=== PATIENT | female | born 1980 | race American Indian/Alaskan Native ===

== ENCOUNTER 2020-09-25 09:58 | Emergency (ER) | payer MEDICAID ==
[2020-09-25 10:02] VITALS: BP 139/83
[2020-09-25] MEDS ORDERED: KETOROLAC 30 MG/1 ML INJ IM ONE (11:55)
--- NOTE | 2020-09-25 12:01 | Emergency Department Report ---
ED General Adult HPI - General Chief complaint: Dental/Oral Stated complaint: BROKEN TOOTH Time Seen by Provider: 09/25/20 10:18 Source: patient Mode of arrival: Ambulatory Limitations: No Limitations - History of Present Illness Initial comments: 39-year-old -[place] female patient presents with complaints of left lower dental pain x3 days. Patient rates her pain as a 10/10 in severity and states it worsens with chewing. She states [id number]-[id number] anti-inflammatories are not helping with her pain. Patient also reports trying to see her dentist this morning, however they did not have any emergency appointments available today. She denies any difficulty opening/closing her jaw, fever/chills/sweats, facial swelling, or or difficulty swallowing. - Related Data Previous Rx's Medication Instructions Recorded Last Taken Type Acetaminophen/Codeine [Tylenol 1 tab PO Q6H PRN #12 tab 09/25/20 Unknown Rx /Codeine # 3 tab] Penicillin V Potassium 500 mg PO QID 7 Days #28 tablet 09/25/20 Unknown Rx Allergies Allergy/AdvReac Type Severity Reaction Status Date / Time No Known Allergies Allergy Unverified 09/25/20 09:58 ED Review of Systems ROS: Stated complaint: BROKEN TOOTH Other details as noted in HPI Constitutional: denies: chills, diaphoresis, fever, malaise, weakness ENT: dental pain. denies: throat pain Respiratory: denies: shortness of breath Skin: denies: change in color Neurological: denies: headache Hematological/Lymphatic: denies: swollen glands ED Past Medical Hx - Past Medical History Previous Medical History?: No - Surgical History Additional Surgical History: OVARIAN CYST/CERVICAL /TOE - Social History Smoking Status: Never Smoker Substance Use Type: None - Medications Home Medications: Home Medications Medication Instructions Recorded Confirmed Last Taken Type Acetaminophen/Codeine [Tylenol 1 tab PO Q6H PRN #12 tab 09/25/20 Unknown Rx /Codeine # 3 tab] Penicillin V Potassium 500 mg PO QID 7 Days #28 tablet 09/25/20 Unknown Rx ED Physical Exam - General Limitations: No Limitations General appearance: alert, other (Patient does appear uncomfortable in pain) - Head Head exam: Present: atraumatic, normocephalic - Eye Eye exam: Present: normal appearance - Expanded ENT Exam Expanded Mouth exam: Present: tongue normal. Absent: drooling, trismus 1 - Fractured, Dental Tenderness, Other (Mild surrounding erythema without obvious abscess or overlying facial swelling/erythema noted) Throat exam: Negative: tonsillar erythema, tonsillomegaly, tonsillar exudate - Neck Neck exam: Present: normal inspection, full ROM ED Course Vital Signs 09/25/20 09:59 Temperature 98.7 F Pulse Rate 68 Respiratory 18 Rate Blood Pressure 139/83 O2 Sat by Pulse 99 Oximetry ED Medical Decision Making - Medical Decision Making 39-year-old -[place] female patient presents with complaints of left lower dental pain x3 days. Patient rates her pain as a 10/10 in severity and states it worsens with chewing. She states [id number]-[id number] anti-inflammatories are not helping with her pain. Patient also reports trying to see her dentist this morning, however they did not have any emergency appointments available today. She denies any difficulty opening/closing her jaw, fever/chills/sweats, facial swelling, or or difficulty swallowing. Prescription for penicillin and pain medication given. Patient instructed to follow-up with her dental specialist within 24 to 48 hours. Strict return precautions were discussed in detail with patient in detail who verbalized understanding. Her vitals are normal, she is nontoxic-appearing, she is stable for discharge home. Critical care attestation.: If time is entered above; I have spent that time in minutes in the direct care of this critically ill patient, excluding procedure time. ED Disposition Clinical Impression: Dental infection Disposition: DC-01 TO HOME OR SELFCARE Is pt being admited?: No Condition: Stable Instructions: Dental Abscess, Preventive Dental Care, Adult Additional Instructions: Please follow-up with your dental specialist within 24 to 48 hours Prescriptions: Penicillin V Potassium 500 mg PO QID 7 Days #28 tablet Acetaminophen/Codeine [Tylenol /Codeine # 3 tab] 1 tab PO Q6H PRN #12 tab PRN Reason: Pain , Severe (7-10) Referrals: JOAN MEHTA MD [Primary Care Provider] - 3-5 Days Forms: AMA Form
== END 2020-09-25 12:08 | disposition home or self-care (01) ==
LOC: ED 09:58
DX: K04.7 Periapical abscess without sinus (principal); Z98.890 Other specified postprocedural states; Z79.2 Long term (current) use of antibiotics
CPT/HCPCS: 96372; 99282; J1885

== ENCOUNTER 2020-10-19 20:52 | Emergency (ER) | payer MEDICAID ==
[2020-10-19 23:27] VITALS: BP 119/66
== END 2020-10-20 02:00 | disposition left against medical advice (07) ==
LOC: ED 20:52
DX: K08.89 Other specified disorders of teeth and supporting structures (principal); Z53.21 Procedure and treatment not carried out due to patient leaving prior to being seen by health care provider

== ENCOUNTER 2020-10-20 03:02 | Emergency (ER) | payer MEDICAID ==
[2020-10-20] MEDS ORDERED: IBUPROFEN 800 MG TAB PO ONE (03:32)
[2020-10-20] MEDS ORDERED: IBUPROFEN 800 MG TAB ONE (03:33)
== END 2020-10-20 09:45 | disposition left against medical advice (07) ==
LOC: ED 03:02
DX: K08.89 Other specified disorders of teeth and supporting structures (principal); Z53.21 Procedure and treatment not carried out due to patient leaving prior to being seen by health care provider

== ENCOUNTER 2020-11-26 13:21 | Emergency (ER) | payer MEDICAID ==
[2020-11-26 13:33] VITALS: BP 116/48
--- NOTE | 2020-11-26 13:54 | Emergency Department Report ---
ED Rash HPI - HPI Chief Complaint: Skin Rash Stated Complaint: ALLERGIC REACTION Time Seen by Provider: 11/26/20 13:32 Duration: 1 Day Location: Chest, Back, Upper Extremities, Lower Extremities Suspected Cause: Unknown Rash Symptoms: Yes Itching, No Facial Swelling, No Tongue/Oral Swelling, No Breathing Difficulties, No Choking Sensation, No Wheezing/Dyspnea, No Peeling, No Blistering, No Fever, No Lightheaded, No Malaise, No Myalgias Severity: mild Other History: This is a 39-year-old female nontoxic, well nourished in appearance, no acute signs of distress presents to the ED with c/o of generlized itching. Stated has rash to bilateral legs. Patient stated that she believes she was in close contact with dust yesterday at work and after that started to have itching. Patient denies any drooling, hoarseness or facial swelling. Patient denies any trauma. She denies any fever, chills, nausea, vomiting, ambreen st pain, shortness of breath, headache, stiff neck, numbness or tingling. Patient denies any drug allergies or significant past medical history. ED Review of Systems ROS: Stated complaint: ALLERGIC REACTION Other details as noted in HPI Comment: All other systems reviewed and negative Constitutional: denies: chills, fever Eyes: denies: eye pain, eye discharge, vision change ENT: denies: ear pain, throat pain Respiratory: denies: cough, shortness of breath, wheezing Cardiovascular: denies: chest pain, palpitations Endocrine: no symptoms reported Gastrointestinal: denies: abdominal pain, nausea, diarrhea Genitourinary: denies: urgency, dysuria, discharge Musculoskeletal: denies: back pain, joint swelling, arthralgia Skin: rash. denies: lesions Neurological: denies: headache, weakness, paresthesias Psychiatric: denies: anxiety, depression Hematological/Lymphatic: denies: easy bleeding, easy bruising ED Past Medical Hx - Past Medical History Previous Medical History?: No - Surgical History Past Surgical History?: No Additional Surgical History: OVARIAN CYST/CERVICAL /TOE - Social History Smoking Status: Never Smoker Substance Use Type: None - Medications Home Medications: Home Medications Medication Instructions Recorded Confirmed Last Taken Type Acetaminophen/Codeine [Tylenol 1 tab PO Q6H PRN #12 tab 09/25/20 Unknown Rx /Codeine # 3 tab] Penicillin V Potassium 500 mg PO QID 7 Days #28 tablet 09/25/20 Unknown Rx Prednisone [predniSONE 10 mg 10 mg PO .TAPER #1 tab.ds.pk 11/26/20 Unknown Rx (6-Day Pack, 21 Tabs)] diphenhydrAMINE [Benadryl CAP] 25 mg PO Q8HR PRN #12 capsule 11/26/20 Unknown Rx Rash Exam - Exam General: Vital signs noted. No distress. Alert and acting appropriately. Negative for angioedema. Uvula midline. No facial swelling. HEENT: No Periorbital Edema, No Conjuctival Injection, No Chemosis, No Perioral Edema, No Tongue Edema, No Uvular Edema, No Compromised Airway, No Drooling Lungs: Yes Good Air Exchange (Normal Breath Sounds), No Wheezes, No Ronchi, No Stridor, No Cough, No Labored Respirations, No Retractions, No Use of Accessory Muscles, No Other Abnormal Lung Sounds Heart: Yes Regular, No Murmur Skin: Yes Maculopapular Rash (Slight to bilateral upper thighs), No Urticarial Rash, No Morbilliform rash, No Bulla(e), No Excoriations, No Weeping, No Tenderness, No Erythema, No Edema, No Encrustations Other: Positive: Abdomen Normal, Neurologic Normal, Musculoskeletal Normal ED Course Vital Signs 11/26/20 11/26/20 13:31 13:33 Temperature 98.4 F Pulse Rate 77 Respiratory 16 Rate Blood Pressure 116/48 [Right] O2 Sat by Pulse 98 Oximetry - Reevaluation(s) Reevaluation #1: 11/26/20 13:59 Patient is speaking in full sentences with no signs of distress noted. ED Medical Decision Making - Medical Decision Making This is a 39-year-old female that presents with allergic reaction. Patient is stable was examined by me. There is no facial swelling. No angioedema. There is no cellulitis. No hoarseness. Patient is discharged with prednisone and Benadryl. Patient was referred to Follow-up with a primary care doctor in 3-5 days or if symptoms worsen and continue return to emergency room as soon as possible. At time of discharge, the patient does not seem toxic or ill in appearance. No acute signs of distress noted. Patient agrees to discharge treatment plan of care. No further questions noted by the patient. Critical care attestation.: If time is entered above; I have spent that time in minutes in the direct care of this critically ill patient, excluding procedure time. ED Disposition Clinical Impression: Allergic reaction Disposition: TO HOME OR SELFCARE Is pt being admited?: No Does the pt Need Aspirin: No Condition: Stable Additional Instructions: Follow-up with a primary care doctor in 3-5 days or if symptoms worsen and continue return to emergency room as soon as possible. Prescriptions: diphenhydrAMINE [Benadryl CAP] 25 mg PO Q8HR PRN #12 capsule PRN Reason: Itching Prednisone [predniSONE 10 mg (6-Day Pack, 21 Tabs)] 10 mg PO .TAPER #1 tab.ds.pk Referrals: PRIMARY CAREMD [Referring] - 3-5 Days MARYELLEN DENSON MD [Staff Physician] - 3-5 Days Time of Disposition: 14:00
== END 2020-11-26 14:26 | disposition home or self-care (01) ==
LOC: ED 13:21
DX: T78.40XA Allergy, unspecified, initial encounter (principal); Z79.899 Other long term (current) drug therapy
CPT/HCPCS: 99282

== ENCOUNTER 2021-03-10 08:31 | Emergency (ER) | payer MEDICAID ==
--- NOTE | 2021-03-10 08:39 | Emergency Department Report ---
ED ENT HPI - General Chief complaint: Dental/Oral Stated complaint: TOOTHACHE Time Seen by Provider: 03/10/21 08:37 Source: patient Mode of arrival: Ambulatory Limitations: No Limitations - History of Present Illness Initial comments: 40 yo -[place] female comes to the ER with severe left upper molar dental pain. She has no abscess. No trismus. No drooling. Patient is ambulatory to the ER. She states she does not have a dentist. [id number] Tylenol and Motrin are not helping for pain. I have educated the patient on the need to see a dentist and anything that we would do in the ER which is temporize the situation she verbalizes understanding. MD complaint: tooth pain -: Gradual, days(s) Severity: severe Quality: aching Consistency: constant Improves with: none Worsens with: none Associated Symptoms: toothache - Related Data Previous Rx's Medication Instructions Recorded Last Taken Type Acetaminophen/Codeine [Tylenol 1 tab PO Q6H PRN #12 tab 09/25/20 Unknown Rx /Codeine # 3 tab] Penicillin V Potassium 500 mg PO QID 7 Days #28 tablet 09/25/20 Unknown Rx Prednisone [predniSONE 10 mg 10 mg PO .TAPER #1 tab.ds.pk 11/26/20 Unknown Rx (6-Day Pack, 21 Tabs)] diphenhydrAMINE [Benadryl CAP] 25 mg PO Q8HR PRN #12 capsule 11/26/20 Unknown Rx Amoxicillin [Trimox CAP] 500 mg PO BID #20 capsule 03/10/21 Unknown Rx Allergies Allergy/AdvReac Type Severity Reaction Status Date / Time No Known Allergies Allergy Verified 03/10/21 08:36 ED Dental HPI - General Chief complaint: Dental/Oral Stated complaint: TOOTHACHE Time Seen by Provider: 03/10/21 08:37 Source: patient Mode of arrival: Ambulatory Limitations: No Limitations - Related Data Previous Rx's Medication Instructions Recorded Last Taken Type Acetaminophen/Codeine [Tylenol 1 tab PO Q6H PRN #12 tab 09/25/20 Unknown Rx /Codeine # 3 tab] Penicillin V Potassium 500 mg PO QID 7 Days #28 tablet 09/25/20 Unknown Rx Prednisone [predniSONE 10 mg 10 mg PO .TAPER #1 tab.ds.pk 11/26/20 Unknown Rx (6-Day Pack, 21 Tabs)] diphenhydrAMINE [Benadryl CAP] 25 mg PO Q8HR PRN #12 capsule 11/26/20 Unknown Rx Amoxicillin [Trimox CAP] 500 mg PO BID #20 capsule 03/10/21 Unknown Rx Allergies Allergy/AdvReac Type Severity Reaction Status Date / Time No Known Allergies Allergy Verified 03/10/21 08:36 ED Review of Systems ROS: Stated complaint: TOOTHACHE Other details as noted in HPI Comment: All other systems reviewed and negative ED Past Medical Hx - Past Medical History Previous Medical History?: No - Surgical History Past Surgical History?: Yes Additional Surgical History: OVARIAN CYST/CERVICAL /TOE - Family History Family history: no significant - Social History Smoking Status: Never Smoker Substance Use Type: None - Medications Home Medications: Home Medications Medication Instructions Recorded Confirmed Last Taken Type Acetaminophen/Codeine [Tylenol 1 tab PO Q6H PRN #12 tab 09/25/20 Unknown Rx /Codeine # 3 tab] Penicillin V Potassium 500 mg PO QID 7 Days #28 tablet 09/25/20 Unknown Rx Prednisone [predniSONE 10 mg 10 mg PO .TAPER #1 tab.ds.pk 11/26/20 Unknown Rx (6-Day Pack, 21 Tabs)] diphenhydrAMINE [Benadryl CAP] 25 mg PO Q8HR PRN #12 capsule 11/26/20 Unknown Rx Amoxicillin [Trimox CAP] 500 mg PO BID #20 capsule 03/10/21 Unknown Rx ED Physical Exam - General Limitations: No Limitations General appearance: alert, in no apparent distress - Head Head exam: Present: atraumatic, normocephalic - Eye Eye exam: Present: normal appearance - ENT ENT exam: Present: mucous membranes moist - Expanded ENT Exam Expanded Mouth exam: Absent: drooling, trismus, muffled voice Teeth exam: Present: dental caries 1 - Other (caries) - Neck Neck exam: Present: normal inspection - Respiratory Respiratory exam: Present: normal lung sounds bilaterally. Absent: respiratory distress - Cardiovascular Cardiovascular Exam: Present: regular rate, normal rhythm. Absent: systolic murmur, diastolic murmur, rubs, gallop - GI/Abdominal GI/Abdominal exam: Present: soft, normal bowel sounds - Extremities Exam Extremities exam: Present: normal inspection - Back Exam Back exam: Present: normal inspection - Neurological Exam Neurological exam: Present: alert, oriented X3 - Psychiatric Psychiatric exam: Present: normal affect, normal mood - Skin Skin exam: Present: warm, dry, intact, normal color. Absent: rash ED Course Vital Signs 03/10/21 08:37 Temperature 98.7 F Pulse Rate 57 L Respiratory 16 Rate Blood Pressure 110/51 O2 Sat by Pulse 100 Oximetry ED Medical Decision Making - Medical Decision Making no drooling no abscess no trismus taking po vss has no dmd dc home with dc plan of care including dmd follow up she verbalizes understanding of plan of care Vital Signs 03/10/21 08:37 Temperature 98.7 F Pulse Rate 57 L Respiratory 16 Rate Blood Pressure 110/51 O2 Sat by Pulse 100 Oximetry - Differential Diagnosis DENTAL PAIN Critical care attestation.: If time is entered above; I have spent that time in minutes in the direct care of this critically ill patient, excluding procedure time. ED Disposition Clinical Impression: Pain, dental Disposition: DC-01 TO HOME OR SELFCARE Is pt being admited?: No Does the pt Need Aspirin: No Condition: Stable Instructions: Acute Pain, Adult Additional Instructions: TYLENOL AND OR MOTRIN FOR PAIN MED ORDERED TODAY STAY WELL HYDRATED Prescriptions: Amoxicillin [Trimox CAP] 500 mg PO BID #20 capsule Referrals: [facility] [Outside] - 3-5 Days [facility] [Outside] - 3-5 Days Time of Disposition: 08:38
[2021-03-10 08:47] VITALS: BP 110/51
== END 2021-03-10 08:59 | disposition home or self-care (01) ==
LOC: ED 08:31
DX: K08.89 Other specified disorders of teeth and supporting structures (principal); Z98.890 Other specified postprocedural states; Z79.2 Long term (current) use of antibiotics; Z79.899 Other long term (current) drug therapy
CPT/HCPCS: 99282

== ENCOUNTER 2021-03-28 12:06 | Emergency (ER) | payer MEDICAID ==
--- NOTE | 2021-03-28 12:45 | Emergency Department Report ---
Blank Doc - Documentation Documentation: 40-year-old female that presents with left-sided chest pain with radiating to the left shoulder and back with shortness of breath. 1- This initial assessment/diagnostic orders/clinical plan/ treatment(s) is/are subject to change based on pt's health status, clinical progression and re- assessment by fellow clinical providers in the ED. Further treatment and workup at subsequent clinical provers discretion. Patient/guardians urged not to elope from ED as their condition may be serious if not clinically assessed and managed. 2-cardiac work-up
[2021-03-28 12:49] VITALS: BP 122/64
[2021-03-28 13:37] LABS: Basophils # (Auto) 0.1 K/mm3 (0.0-0.1); Basophils % (Auto) 0.9 % (0.0-1.8); Eosinophils # (Auto) 0.1 K/mm3 (0.0-0.4); Eosinophils % (Auto) 1.9 % (0.0-4.3); Hematocrit 32.3 % (30.3-42.9); Hemoglobin 10.5 gm/dl (10.1-14.3); Lymphocytes % (Auto) 33.8 % (13.4-35.0); Mean Corpuscular HGB Conc 32 % (30-34); Mean Corpuscular Volume 83 fl (79-97); Monocytes # (Auto) 0.3 K/mm3 (0.0-0.8); Monocytes % (Auto) 5.8 % (0.0-7.3); Platelet Count 292 K/mm3 (140-440); Red Blood Count 3.92 M/mm3 (3.65-5.03); Red Cell Distribution Width 18.2 % (13.2-15.2)
[2021-03-28 13:44] LABS: INR 1.12 (0.87-1.13)
[2021-03-28 13:45] LABS: Partial Thromboplastin Time 28.5 Sec. (24.2-36.6)
[2021-03-28 13:55] LABS: Alanine Aminotransferase 22 units/L (7-56); Albumin 4.2 g/dL (3.9-5); Blood Urea Nitrogen 13 mg/dL (7-17); Calcium 8.6 mg/dL (8.4-10.2); Hemolysis Index 20
[2021-03-28 13:59] LABS: BUN/Creatinine Ratio 19
--- NOTE | 2021-03-28 15:43 | XRay Report ---
CHEST 2 VIEWS INDICATION / CLINICAL INFORMATION: Chest Pain. COMPARISON: None available. FINDINGS: SUPPORT DEVICES: None. HEART / MEDIASTINUM: No significant abnormality. LUNGS / PLEURA: No significant pulmonary or pleural abnormality. No pneumothorax. ADDITIONAL FINDINGS: No significant additional findings. IMPRESSION: No acute cardiopulmonary abnormality. Signer Name: Griffin John MD Signed: 03/28/2021 3:38 PM Workstation Name: [email or web address]
[2021-03-28] MEDS ORDERED: IBUPROFEN 800 MG TAB PO ONE (17:29)
[2021-03-28] MEDS ORDERED: HYDROcodone/ACETAMINOPHEN 5-325 MG TAB PO ONE (17:29)
--- NOTE | 2021-03-28 17:35 | Emergency Department Report ---
ED Chest Pain HPI - General Chief Complaint: Chest Pain Stated Complaint: BAD CHEST PAIN Time Seen by Provider: 03/28/21 12:41 Source: patient Mode of arrival: Ambulatory Limitations: No Limitations - History of Present Illness Initial Comments: Chief complaint: My chest hurt HPI: This is a healthy 40-year-old female with history of cervical cancer status post ablation, ovarian cyst who presents with left-sided chest pain when she awakened this morning. Pain began 2 AM. Chest pain awakened her from sleep. Squeezing chest pain. Left arm tightness. She recently traveled to [place] 2 months ago. She denies use of oral contraceptives. She denies leg pain. Mother has a history of heart disease. No recent trauma. 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 MD Complaint: chest pain -: Gradual Onset: during rest Pain Location: left chest Pain Radiation: LUE Severity: moderate Quality: squeezing Consistency: constant Improves With: nothing Worsens With: palpation, movement Treatments Prior to Arrival: none - Related Data Previous Rx's Medication Instructions Recorded Last Taken Type Acetaminophen/Codeine [Tylenol 1 tab PO Q6H PRN #12 tab 09/25/20 Unknown Rx /Codeine # 3 tab] Penicillin V Potassium 500 mg PO QID 7 Days #28 tablet 09/25/20 Unknown Rx Prednisone [predniSONE 10 mg 10 mg PO .TAPER #1 tab.ds.pk 11/26/20 Unknown Rx (6-Day Pack, 21 Tabs)] diphenhydrAMINE [Benadryl CAP] 25 mg PO Q8HR PRN #12 capsule 11/26/20 Unknown Rx Amoxicillin [Trimox CAP] 500 mg PO BID #20 capsule 03/10/21 Unknown Rx HYDROcodone/APAP 5-325 [[place] 1 each PO Q6HR PRN #10 tablet 03/28/21 Unknown Rx 5/325] Ibuprofen [Motrin 400 MG tab] 400 mg PO TID 5 Days #15 tablet 03/28/21 Unknown Rx Allergies Allergy/AdvReac Type Severity Reaction Status Date / Time No Known Allergies Allergy Verified 03/10/21 08:36 Heart Score - HEART Score History: Slightly suspicious EKG: Normal Age: < 45 Risk factors: No known risk factors Troponin: < normal limit HEART Score: 0 - EKG Read Time Time EKG Completed: 12:29 EKG Read Time: 12:36 ED Review of Systems ROS: Stated complaint: BAD CHEST PAIN Other details as noted in HPI Comment: All other systems reviewed and negative Constitutional: denies: fever, malaise Respiratory: denies: cough, shortness of breath Cardiovascular: chest pain Gastrointestinal: denies: abdominal pain, nausea, vomiting ED Past Medical Hx - Past Medical History Previous Medical History?: Yes Hx of Cancer: Yes (cervical) Additional medical history: Ovarian cyst - Surgical History Past Surgical History?: Yes Additional Surgical History: OVARIAN CYST/CERVICAL ablation/TOE - Social History Smoking Status: Current Every Day Smoker Substance Use Type: Alcohol, Marijuana, Other - Medications Home Medications: Home Medications Medication Instructions Recorded Confirmed Last Taken Type Acetaminophen/Codeine [Tylenol 1 tab PO Q6H PRN #12 tab 09/25/20 Unknown Rx /Codeine # 3 tab] Penicillin V Potassium 500 mg PO QID 7 Days #28 tablet 09/25/20 Unknown Rx Prednisone [predniSONE 10 mg 10 mg PO .TAPER #1 tab.ds.pk 11/26/20 Unknown Rx (6-Day Pack, 21 Tabs)] diphenhydrAMINE [Benadryl CAP] 25 mg PO Q8HR PRN #12 capsule 11/26/20 Unknown Rx Amoxicillin [Trimox CAP] 500 mg PO BID #20 capsule 03/10/21 Unknown Rx HYDROcodone/APAP 5-325 [[place] 1 each PO Q6HR PRN #10 tablet 03/28/21 Unknown Rx 5/325] Ibuprofen [Motrin 400 MG tab] 400 mg PO TID 5 Days #15 tablet 03/28/21 Unknown Rx ED Physical Exam - General Limitations: No Limitations General appearance: alert, in no apparent distress, other (Holds chest when she laughs) - Head Head exam: Present: atraumatic, normocephalic - Eye Eye exam: Present: normal appearance - ENT ENT exam: Present: mucous membranes moist - Neck Neck exam: Present: normal inspection, full ROM - Respiratory Respiratory exam: Present: normal lung sounds bilaterally. Absent: respiratory distress, wheezes, rales, rhonchi - Cardiovascular Cardiovascular Exam: Present: regular rate, normal rhythm, normal heart sounds. Absent: systolic murmur, diastolic murmur, rubs, gallop - GI/Abdominal GI/Abdominal exam: Present: soft, normal bowel sounds. Absent: distended, tenderness, guarding, rebound - Extremities Exam Extremities exam: Present: normal inspection - Neurological Exam Neurological exam: Present: alert, oriented X3 - Psychiatric Psychiatric exam: Present: normal affect, normal mood - Skin Skin exam: Present: warm, dry, intact, normal color. Absent: rash ED Course Vital Signs 03/28/21 12:39 Temperature 98.7 F Pulse Rate 62 Respiratory 18 Rate Blood Pressure 122/64 O2 Sat by Pulse 100 Oximetry ED Medical Decision Making - Lab Data Result diagrams: 03/28/21 13:07 03/28/21 13:07 Laboratory Results - last 24 hr 03/28/21 03/28/21 03/28/21 13:07 13:07 13:07 WBC 5.9 RBC 3.92 Hgb 10.5 Hct 32.3 MCV 83 MCH 27 L MCHC 32 RDW 18.2 H Plt Count 292 Lymph % (Auto) 33.8 [place] % (Auto) 5.8 Eos % (Auto) 1.9 Baso % (Auto) 0.9 Lymph # (Auto) 2.0 [place] # (Auto) 0.3 Eos # (Auto) 0.1 Baso # (Auto) 0.1 Seg Neutrophils % 57.6 Seg Neutrophils # 3.4 PT 14.2 INR 1.12 APTT 28.5 Sodium 136 L Potassium 4.1 Chloride 101.6 Carbon Dioxide 24 Anion Gap 15 BUN 13 Creatinine 0.7 Estimated GFR > 60 BUN/Creatinine Ratio 19 Glucose 88 Calcium 8.6 Total Bilirubin 1.20 AST 25 ALT 22 Alkaline Phosphatase 43 Troponin T < 0.010 Total Protein 6.9 Albumin 4.2 Albumin/Globulin Ratio 1.6 HCG, Qual 03/28/21 03/28/21 13:07 15:36 WBC RBC Hgb Hct MCV MCH MCHC RDW Plt Count Lymph % (Auto) [place] % (Auto) Eos % (Auto) Baso % (Auto) Lymph # (Auto) [place] # (Auto) Eos # (Auto) Baso # (Auto) Seg Neutrophils % Seg Neutrophils # PT INR APTT Sodium Potassium Chloride Carbon Dioxide Anion Gap BUN Creatinine Estimated GFR BUN/Creatinine Ratio Glucose Calcium Total Bilirubin AST ALT Alkaline Phosphatase Troponin T < 0.010 Total Protein Albumin Albumin/Globulin Ratio HCG, Qual Negative - Radiology Data Radiology results: report reviewed Patient Name: ROSA AGUILAR Gender: Female Date of : 1980 Referring Provider: SHANKAR ESCALERA Organization: [facility] Accession Number: [id number] Requested Date: March 28, 2021 12:44 Report Status: Final Requested Procedure: 1 Procedure Description: XR chest routine 2V Modality: XR Findings Reporting MD: Griffin John Dictation Time: March 28, 2021 14:38 Control Inspector: Not available Shoe Cutter Date: CHEST 2 VIEWS INDICATION / CLINICAL INFORMATION: Chest Pain. COMPARISON: None available. FINDINGS: SUPPORT DEVICES: None. HEART / MEDIASTINUM: No significant abnormality. LUNGS / PLEURA: No significant pulmonary or pleural abnormality. No pneumothorax. ADDITIONAL FINDINGS: No significant additional findings. IMPRESSION: No acute cardiopulmonary abnormality. Signer Name: Griffin John MD - Medical Decision Making Chest wall pain: Suspect muscular strain no evidence of pulmonary embolism, pe ricarditis, pneumonia, pneumothorax. No retraction or ACS. Troponin negative x2. Normal EKG. Patient given reassurance. Encourage NSAIDs such as ibuprofen. Prescribed ibuprofen [place]. Also encouraged heat therapy. PERC negative Considering the noncardiac nature of pain, I did not feel that outpatient cardiology evaluation is warranted at this time. I have referred patient to outpatient medicine physician. Critical care attestation.: If time is entered above; I have spent that time in minutes in the direct care of this critically ill patient, excluding procedure time. ED Disposition Clinical Impression: Chest wall muscle strain Disposition: DC-01 TO HOME OR SELFCARE Is pt being admited?: No Does the pt Need Aspirin: No Condition: Stable Instructions: Muscle Strain, [id number] Prescriptions: Ibuprofen [Motrin 400 MG tab] 400 mg PO TID 5 Days #15 tablet HYDROcodone/APAP 5-325 [[place] 5/325] 1 each PO Q6HR PRN #10 tablet PRN Reason: Pain Referrals: MARYELLEN DENSON MD [Staff Physician] - 3-5 Days Forms: Work/School Release Form(ED)
--- NOTE | 2021-03-30 10:28 | Electrocardiograph Report ---
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
== END 2021-03-28 17:45 | disposition home or self-care (01) ==
LOC: ED 12:06
DX: S29.011A Strain of muscle and tendon of front wall of thorax, initial encounter (principal); F17.200 Nicotine dependence, unspecified, uncomplicated; F12.10 Cannabis abuse, uncomplicated; Z98.890 Other specified postprocedural states; Z79.899 Other long term (current) drug therapy; X58.XXXA Exposure to other specified factors, initial encounter; Y93.89 Activity, other specified; Y92.89 Other specified places as the place of occurrence of the external cause; Y99.8 Other external cause status
CPT/HCPCS: 36415; 71046; 80053; 84484; 84703; 85025; 85610; 85730; 93005

== ENCOUNTER 2021-08-31 18:30 | Emergency (ER) | payer MEDICAID ==
[2021-08-31 20:22] VITALS: BP 136/92
--- NOTE | 2021-08-31 21:23 | Emergency Department Report ---
[facility] Chief Complaint: Eye Problems Stated Complaint: LT EYE BURNING Time Seen by Provider: 08/31/21 20:34 Duration: 1 Day Side: Left Severity: mild, moderate Symptoms: Yes Eye Itching, Yes Eye Redness, No Blurred Vision, No H/O Allergic Rhinitis, No Contact Lens Use, No Trauma, No Fever, No Headache Other History: 40-year-old female [facility] emerge department complaining of irritation to the left after some slight debris flew towards her and because she get very irritated. She reports ports that she irrigated copiously with would like some medication to help deal with that the discomfort she is appreciated. Reports no discharge no headache no fevers chills or sweats ED Review of Systems ROS: Stated complaint: LT EYE BURNING Other details as noted in HPI Comment: All other systems reviewed and negative ED Past Medical Hx - Past Medical History Additional medical history: Ovarian cyst - Surgical History Additional Surgical History: OVARIAN CYST/CERVICAL ablation/TOE - Social History Smoking Status: Current Every Day Smoker Substance Use Type: Alcohol, Marijuana, Other - Medications Home Medications: Home Medications Medication Instructions Recorded Confirmed Last Taken Type Acetaminophen/Codeine [Tylenol 1 tab PO Q6H PRN #12 tab 09/25/20 Unknown Rx /Codeine # 3 tab] Penicillin V Potassium 500 mg PO QID 7 Days #28 tablet 09/25/20 Unknown Rx Prednisone [predniSONE 10 mg 10 mg PO .TAPER #1 tab.ds.pk 11/26/20 Unknown Rx (6-Day Pack, 21 Tabs)] diphenhydrAMINE [Benadryl CAP] 25 mg PO Q8HR PRN #12 capsule 11/26/20 Unknown Rx Amoxicillin [Trimox CAP] 500 mg PO BID #20 capsule 03/10/21 Unknown Rx HYDROcodone/APAP 5-325 [[place] 1 each PO Q6HR PRN #10 tablet 03/28/21 Unknown Rx 5/325] Ibuprofen [Motrin 400 MG tab] 400 mg PO TID 5 Days #15 tablet 03/28/21 Unknown Rx Ketorolac Tromethamine [Acular 1 drop OP Q4HR PRN #1 bottle 08/31/21 Unknown Rx 0.5% Opth Soln] Olopatadine HCl [Pataday] 1 drop OP DAILY #1 bottle 08/31/21 Unknown Rx [facility] Exam - Exam General: Vital signs noted. No distress. Alert and acting appropriately. Eye Exam: Left Injection, Left EOMI (Visual acuity is 20/25, 20/20, 20/20), Neither Chemosis, Neither Abnormal Pupil, Neither Eye Foreign Body, Neither Lid Foreign Body, Neither Mucous Discharge, Neither Purulent Discharge, Neither Fluorescein Uptake, Neither Fluorescein Uptake (slit lamp), Neither Cell/Flare (slit lamp), Neither Corneal Edema, Neither Photophobia HEENT: No Nasal Congestion, No Pharyngeal Erythema Remainder of HEENT: Normal Lungs: Yes Clear Lung Sounds, Yes Good Air Exchange, No Wheezes, No Cough, No Nasal Flaring ED Course Vital Signs 08/31/21 08/31/21 20:21 20:22 Respiratory 18 82 H Rate Blood Pressure 136/92 O2 Sat by Pulse 100 Oximetry ED Medical Decision Making - Medical Decision Making Scleral injection. No recent eye trauma suspected microtrauma. Negative Adri sign. No significant photophobia. Given history and exam I have low suspicion for corneal abrasion or corneal ulcer, globe rupture, uveitis, HSV keratitis, endophthalmitis, retinal detachment, angle-closure glaucoma, foreign body. Plan is to discharge home with primary care and ophthalmologic follow-up within 48 hours if not resolving Contact lens wearer so utilize of ofloxacin 0.5% ophthalmologic solution 1 to 2 drops every 2 hours for 2 days then in of 6 hours for 5 days. Critical care attestation.: If time is entered above; I have spent that time in minutes in the direct care of this critically ill patient, excluding procedure time. ED Disposition Clinical Impression: Conjunctivitis Disposition: 01 HOME / SELF CARE / HOMELESS Is pt being admited?: No Does the pt Need Aspirin: No Condition: Stable Instructions: How to Use Eye Drops and Eye Ointments Prescriptions: Ketorolac Tromethamine [Acular 0.5% Opth Soln] 1 drop OP Q4HR PRN #1 bottle PRN Reason: EYE PAIN Olopatadine HCl [Pataday] 1 drop OP DAILY #1 bottle Referrals: [facility] [Provider Group] - 3-5 Days
[2021-08-31] MEDS ORDERED: TETRACAINE 0.5% OPHTH SOLN 4ML OS STA (21:31)
== END 2021-08-31 23:37 | disposition home or self-care (01) ==
LOC: ED 18:30
DX: H10.9 Unspecified conjunctivitis (principal); F17.200 Nicotine dependence, unspecified, uncomplicated; F12.90 Cannabis use, unspecified, uncomplicated; Z72.89 Other problems related to lifestyle
CPT/HCPCS: 99282

== ENCOUNTER 2022-06-09 16:29 | Emergency (ER) | payer MEDICAID ==
--- NOTE | 2022-06-09 17:18 | XRay Report ---
XR chest routine 2V INDICATION / CLINICAL INFORMATION: Chest Pain. COMPARISON: 03/28/2021 FINDINGS: SUPPORT DEVICES: None. HEART /PULMONARY VASCULATURE: No significant abnormality. LUNGS / PLEURA: No significant pulmonary or pleural abnormality. No pneumothorax. ADDITIONAL FINDINGS: No significant additional findings. IMPRESSION: 1. No acute findings. Signer Name: Jeanmarie Fontanez MD Signed: 06/09/2022 5:14 PM Workstation Name: [id number]
[2022-06-09 17:38] VITALS: BP 125/79
[2022-06-09 18:59] LABS: Basophils # (Auto) 0.1 K/mm3 (0.0-0.1); Basophils % (Auto) 1.5 % (0.0-1.8); Eosinophils # (Auto) 0.1 K/mm3 (0.0-0.4); Eosinophils % (Auto) 1.4 % (0.0-4.3); Hematocrit 33.4 % (30.3-42.9); Hemoglobin 10.5 gm/dl (10.1-14.3); Lymphocytes # (Auto) 1.9 K/mm3 (1.2-5.4); Mean Corpuscular HGB Conc 32 % (30-34); Mean Corpuscular Volume 79 fl (79-97); Monocytes # (Auto) 0.3 K/mm3 (0.0-0.8); Platelet Count 308 K/mm3 (140-440); Red Blood Count 4.24 M/mm3 (3.65-5.03); Red Cell Distribution Width 18.3 % (13.2-15.2)
[2022-06-09 19:18] LABS: Alanine Aminotransferase 12 units/L (7-56); Albumin 4.6 g/dL (3.9-5); Blood Urea Nitrogen 10 mg/dL (7-17); Calcium 9.1 mg/dL (8.4-10.2); Hemolysis Index 8
[2022-06-09 20:01] LABS: BUN/Creatinine Ratio 17
--- NOTE | 2022-06-10 14:21 | Electrocardiograph Report ---
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
== END 2022-06-10 11:05 | disposition left against medical advice (07) ==
LOC: ED 16:29
DX: M25.531 Pain in right wrist (principal); R07.9 Chest pain, unspecified; Z53.21 Procedure and treatment not carried out due to patient leaving prior to being seen by health care provider
CPT/HCPCS: 36415; 71046; 80053; 84484; 85025; 93005